=== PATIENT | female | born 1970 | race Caucasian/White ===

== ENCOUNTER 2017-03-21 04:10 | Inpatient (IN) | payer OTHER ==
[~2017-03-21] VITALS: Ht 162.6 cm; Wt 70.9 kg
[2017-03-21 05:00] LABS: PLATELET COUNT 189 x10^3mcL (130-400)
[2017-03-21 05:01] LABS: BASOPHIL % 0 % (0-2); RED CELL DISTRIBUTION WIDTH 15.2 % (11.5-14.5)
[2017-03-21 05:10] LABS: CALCIUM 8.6 mg/dL (8.5-10.1); CARBON DIOXIDE 25.5 mmol/L (21-32); CHLORIDE SERUM 104 mmol/L (98-107); CREATININE SERUM 0.8 mg/dL (0.6-1.0); GFR1 > 60 mL/min; GLUCOSE SERUM 150 mg/dL (74-106); POTASSIUM SERUM 4.2 mmol/L (3.5-5.1); SODIUM SERUM 140 mmol/L (136-145)
[2017-03-21 05:10] LABS: UA SPECIFIC GRAVITY 1.025 (1.005-1.035); microscopic required? YES; urine erythrocyte 3+ (NEGATIVE)
[2017-03-21 05:14] LABS: ALBUMIN 3.8 g/dL (3.4-5.0); ALKALINE PHOSPHATASE 78 U/L (46-116); ALT/SGPT 32 U/L (14-59); AMYLASE 91 U/L (25-115); AST/SGOT 19 U/L (15-37); BILIRUBIN TOTAL 0.24 mg/dL (0.20-1.00); LIPASE 118 IU/L (73-393); TOTAL PROTEIN, SERUM 7.5 g/dL (6.4-8.2)
[2017-03-21 07:27] LABS: FREE T4 0.73 ng/dL (0.76-1.46); FREE THYROXINE INDEX 2.7 ug/dL (1.4-4.5)
[2017-03-21 07:32] LABS: CHOLESTEROL/HDL RATIO 3.3
[2017-03-21 08:22] LABS: AMPHETAMINE QUAL UR NONE DETECTED (NEG <=1000)
[2017-03-21 08:26] LABS: T3 TOTAL 1.17 ng/mL
[2017-03-21 10:04] VITALS: BP 103/62
[2017-03-21 12:05] VITALS: BP 103/62
[2017-03-21 13:00] VITALS: BP 100/61
[2017-03-21 19:02] VITALS: BP 107/60
[2017-03-21 21:12] VITALS: BP 102/52
[2017-03-22 05:30] VITALS: BP 102/63
[2017-03-22 06:07] LABS: PLATELET COUNT 151 x10^3mcL (130-400)
[2017-03-22 06:22] LABS: BASOPHIL % 0 % (0-2); RED CELL DISTRIBUTION WIDTH 14.9 % (11.5-14.5)
[2017-03-22 06:32] LABS: CALCIUM 8.1 mg/dL (8.5-10.1); CARBON DIOXIDE 24.1 mmol/L (21-32); CHLORIDE SERUM 105 mmol/L (98-107); CREATININE SERUM 0.6 mg/dL (0.6-1.0); GFR1 > 60 mL/min; GLUCOSE SERUM 126 mg/dL (74-106); PHOSPHOROUS 3.6 mg/dL (2.5-4.9); POTASSIUM SERUM 4.2 mmol/L (3.5-5.1); SODIUM SERUM 136 mmol/L (136-145)
[2017-03-22 09:30] VITALS: BP 108/64
[2017-03-22 17:00] VITALS: BP 105/67
[2017-03-22 20:50] VITALS: BP 111/60
[2017-03-23 05:53] VITALS: BP 110/66
[2017-03-23 06:00] LABS: BASOPHIL % 0.3 % (0-2); PLATELET COUNT 146 x10^3mcL (130-400)
[2017-03-23 06:45] LABS: RED CELL DISTRIBUTION WIDTH 15.3 % (11.5-14.5)
[2017-03-23 09:34] VITALS: BP 121/65
[2017-03-23 11:33] VITALS: BP 121/65
[2017-03-23] MEDS ORDERED: LEVAQUIN750 MG PO (11:34)
[2017-03-23] MEDS ORDERED: APAP/HYDROCODON1 T13 PO (11:54)
[2017-03-23] MEDS ORDERED: LAC PO (11:54)
[2017-03-23] MEDS ORDERED: COLACE100 MG PO (11:55)
== END 2017-03-23 13:25 | disposition home or self-care (01) | DRG 417 ==
LOC: ED 04:10 → MU 06:00 → DU 06:00 → MU 08:09
PROVIDERS: Emergency Medicine; Family Medicine; Surgery; ADMIT Family Medicine
PROC: 0FT44ZZ Resection of Gallbladder, Percutaneous Endoscopic Approach (ICD-10-PCS; principal; 2017-03-21 16:30)
DX: K80.00 Calculus of gallbladder with acute cholecystitis without obstruction (principal); N17.0 Acute kidney failure with tubular necrosis; N39.0 Urinary tract infection, site not specified; R73.03 Prediabetes
CPT/HCPCS: 80307; 82962; 83880; 84439; J0295; J0690; J1170; J1885; J1956; J2250; J2270; J3010; J3490; J7030; Q0092; Q0162